=== PATIENT | male | born 1990 | race Hispanic/Latino ===

== ENCOUNTER 2019-01-14 07:53 | Day surgery (SDC) | payer OTHER ==
--- NOTE | 2019-01-14 07:45 | CP.SDSHP ---
Same Day Surgery H & P - History Proposed Procedure: EGD Pre-Op Diagnosis: hematemesis. heartburn. epigastric pain - Previous Medical/Surgical History Endocrine/Metabolic: Diabetes, Obesity Misc: Other (B12 deficiency, NAFLD) - Physical Exam Mental Status: Alert & Oriented x3 Neuro: WNL Heart: WNL Lungs: WNL GI: WNL - Impression Impression: hematemesis. heartburn. epigastric pain Pt. Evaluated Today:Candidate for Anesthesia & Procedure: Yes - Date & Time Date: 01/14/19 Time: 07:44 Short Stay Discharge - Short Stay Discharge Admitting Diagnosis/Reason for Visit: HEMATEMESIS Disposition: HOME/ ROUTINE
[2019-01-14 09:02] VITALS: BMI 34.5
[2019-01-14 09:18] VITALS: PULSE 60; RESP 19; TEMP 98; O2SAT 100
[2019-01-14] MEDS ORDERED: Propofol 10 mg/ml Inj (20 ML) ONE (11:18)
[2019-01-14] MEDS ORDERED: Pantoprazole 40 mg EC Tab PO STA (11:21)
[2019-01-14] MEDS ORDERED: Lactated Ringer's 1,000 ML IV ONE (11:25)
[2019-01-14 12:32] VITALS: BP 119/63
== END 2019-01-14 12:40 | disposition home or self-care (01) ==
LOC: C.ENDO 07:53
PROVIDERS: ATTEND Internal Medicine Gastroenterology
DX: K92.0 Hematemesis (principal); R12 Heartburn; R10.13 Epigastric pain; E66.01 Morbid (severe) obesity due to excess calories; K29.50 Unspecified chronic gastritis without bleeding; K29.80 Duodenitis without bleeding
CPT/HCPCS: 43239; 82948; 88305; 88312; 88313; 88342; J2001; J2704; J7120